=== PATIENT | male | born 1980 | race Two or more races ===

== ENCOUNTER 2018-11-15 06:05 | Emergency (ER) | payer MEDICAID ==
[~2018-11-15] VITALS: Ht 188 cm; Wt 83.5 kg
[2018-11-15 06:09] VITALS: Ht 188 cm; Wt 83.5 kg
[2018-11-15 07:35] VITALS: BP 125/69
== END 2018-11-15 07:35 | disposition home or self-care (01) ==
LOC: ED 06:05
DX: R10.13 Epigastric pain (principal)
CPT/HCPCS: J1885